=== PATIENT | female | born 1975 | race Caucasian/White ===

== ENCOUNTER 2020-07-17 17:06 | Emergency (ER) | payer OTHER ==
[~2020-07-17] VITALS: Ht 167.6 cm; Wt 76.2 kg
== END 2020-07-17 22:54 | disposition home or self-care (01) ==
LOC: ER 17:06
DX: G44.89 Other headache syndrome (principal); R53.81 Other malaise

== ENCOUNTER 2021-02-18 02:07 | Emergency (ER) | payer OTHER ==
[~2021-02-18] VITALS: Ht 167.6 cm; Wt 81.6 kg
[2021-02-18] MEDS ORDERED: VISTARIL25 MG PO (09:46)
[2021-02-18] MEDS ORDERED: ZOFRAN8 MG SL (09:46)
== END 2021-02-18 09:58 | disposition home or self-care (01) ==
LOC: ER 02:07
DX: R00.2 Palpitations (principal); R11.10 Vomiting, unspecified; F06.4 Anxiety disorder due to known physiological condition

== ENCOUNTER 2021-06-09 23:28 | Emergency (ER) | payer OTHER ==
[~2021-06-09] VITALS: Ht 167.6 cm; Wt 79.4 kg
[~2021-06-09 23:28] MED LIST: VISTARIL25 MG PO; ZOFRAN8 MG SL
[2021-06-10] MEDS ORDERED: MECLIZINE HCL25 MG PO (05:45)
[2021-06-10] MEDS ORDERED: CIPRO500 MG PO (05:46)
== END 2021-06-10 06:00 ==
LOC: ER 23:28
DX: R42 Dizziness and giddiness (principal); M94.0 Chondrocostal junction syndrome [Tietze]; N39.0 Urinary tract infection, site not specified

== ENCOUNTER 2021-10-01 00:29 | Emergency (ER) | payer OTHER ==
[~2021-10-01] VITALS: Ht 167.6 cm; Wt 79.8 kg
[~2021-10-01 00:29] MED LIST changes: +CIPRO500 MG PO; +MECLIZINE HCL25 MG PO
[2021-10-01] MEDS ORDERED: NORFLEX100MG PO (03:38)
[2021-10-01] MEDS ORDERED: MEDROLPACK PO (03:38)
== END 2021-10-01 04:11 | disposition home or self-care (01) ==
LOC: ER 00:29
DX: M25.522 Pain in left elbow (principal)

== ENCOUNTER 2022-06-25 15:52 | Emergency (ER) | payer OTHER ==
[~2022-06-25] VITALS: Ht 167.6 cm; Wt 81.6 kg
[~2022-06-25 15:52] MED LIST changes: +ACETAMINOPHEN650 M2; +MEDROLPACK PO; +NORFLEX100MG PO
[2022-06-26] MEDS ORDERED: ZOFRAN8 MG PO (02:41)
[2022-06-26] MEDS ORDERED: PEPCID40 MG PO (02:41)
[2022-06-26] MEDS ORDERED: LEVSIN/SL0.125 MG SL (02:41)
[2022-06-26] MEDS ORDERED: INTESTINEX680 M1 PO (02:41)
== END 2022-06-26 02:53 ==
LOC: ER 15:52
DX: K52.89 Other specified noninfective gastroenteritis and colitis (principal)

== ENCOUNTER 2022-08-13 12:06 | Emergency (ER) | payer OTHER ==
[~2022-08-13] VITALS: Ht 167.6 cm; Wt 83.9 kg
[~2022-08-13 12:06] MED LIST changes: +INTESTINEX680 M1 PO; +LEVSIN/SL0.125 MG SL; +PEPCID40 MG PO; +ZOFRAN8 MG PO
== END 2022-08-13 15:00 | disposition home or self-care (01) ==
LOC: ER 12:06
DX: K58.9 Irritable bowel syndrome, unspecified (principal); Z88.6 Allergy status to analgesic agent

== ENCOUNTER 2023-04-05 20:51 | Emergency (ER) | payer OTHER ==
[~2023-04-05] VITALS: Ht 167.6 cm; Wt 81.6 kg
[2023-04-05] MEDS ORDERED: ZITHROMAX500 MG PO (22:32)
== END 2023-04-05 22:41 | disposition home or self-care (01) ==
LOC: ER 20:51
DX: B34.9 Viral infection, unspecified (principal); Z88.6 Allergy status to analgesic agent; Z20.822 Contact with and (suspected) exposure to COVID-19

== ENCOUNTER 2023-05-03 06:45 | Emergency (ER) | payer OTHER ==
[~2023-05-03] VITALS: Ht 167.6 cm; Wt 85.3 kg
[~2023-05-03 06:45] MED LIST changes: +ZITHROMAX500 MG PO
== END 2023-05-03 12:17 | disposition home or self-care (01) ==
LOC: ER 06:45
DX: R42 Dizziness and giddiness (principal)

== ENCOUNTER 2023-09-26 11:03 | Emergency (ER) | payer OTHER ==
[~2023-09-26] VITALS: Ht 167.6 cm; Wt 86.2 kg
[2023-09-26] MEDS ORDERED: TYLENOL ARTHRI650 MG PO (14:33)
== END 2023-09-26 14:46 | disposition home or self-care (01) ==
LOC: ER 11:03
DX: S83.92XA Sprain of unspecified site of left knee, initial encounter (principal); M79.652 Pain in left thigh; W18.30XA Fall on same level, unspecified, initial encounter; Y93.9 Activity, unspecified; Y92.9 Unspecified place or not applicable; Y99.9 Unspecified external cause status

== ENCOUNTER 2024-11-04 19:18 | Emergency (ER) | payer OTHER ==
[~2024-11-04] VITALS: Ht 167.6 cm; Wt 87.1 kg
[~2024-11-04 19:18] MED LIST changes: +TYLENOL ARTHRI650 MG PO
[2024-11-04 20:55] LABS: HEMATOCRIT 37.9 % (36.0-45.00); MEAN CELL VOLUME 89.9 fL (80.00-100.00); MEAN CORPUSCULAR HEMOGLOBIN 30.8 pg (27.00-32.0); MEAN CORPUSCULAR HGB CONC 34.2 g/dl (32.0-36.0); PLATELET COUNT 247 K/uL (150-450); RED BLOOD COUNT 4.21 M/uL (4.00-6.00); RED CELL DISTRIBUTION WIDTH 14.4 % (11.5-14.5)
[2024-11-04 21:04] LABS: URINE APPEARANCE Clear; URINE BILIRRUBIN Negative (NEGATIVE); URINE BLOOD Negative; URINE COLOR Dark Yellow; URINE GLUCOSE Negative (NEGATIVE); URINE KETONE Trace (NEGATIVE); URINE LEUKOCYTE Moderate; URINE NITRATE Positive; URINE PROTEIN Negative (NEGATIVE)
[2024-11-04 21:05] LABS: URINE BACTERIA 341.4 uL (0.0-1933); URINE EPITHELIAL CELLS 18.3 uL (0.0-38.8); URINE WBC 82.1 uL (0.0-23.2)
[2024-11-04 21:09] LABS: URINE CAST 0.14 uL (0.0-1.40)
[2024-11-04] MEDS ORDERED: CIPRO500 MG PO (21:19)
[2024-11-04] MEDS ORDERED: DEXAMETHASONE SODIUM PHOSPHATE 4 MG/ML VIAL IM STA (21:25)
[2024-11-04] MEDS ORDERED: ORPHENADRINE CITRATE 30 MG/ML AMPUL IM STA (21:26)
== END 2024-11-04 21:51 | disposition home or self-care (01) ==
LOC: ER 19:20
DX: N39.0 Urinary tract infection, site not specified (principal); Z88.6 Allergy status to analgesic agent
CPT/HCPCS: 36415; 96372; 99282; J1885; J2360

== ENCOUNTER 2025-03-09 21:44 | Emergency (ER) | payer OTHER ==
[~2025-03-09] VITALS: Ht 167.6 cm; Wt 83.9 kg
[2025-03-09] MEDS ORDERED: ACETAMINOPHEN 500 MG GEL..CAP PO ONE ×2 (23:30→23:34)
[2025-03-09] MEDS ORDERED: DEXAMETHASONE SODIUM PHOSPHATE 4 MG/ML VIAL IM ONE (23:30)
[2025-03-09] MEDS ORDERED: DEXAMETHASONE SODIUM PHOSPHATE 4 MG/ML VIAL ONE (23:34)
== END 2025-03-10 00:31 | disposition home or self-care (01) ==
LOC: ER 21:46
DX: M53.3 Sacrococcygeal disorders, not elsewhere classified (principal); Z88.6 Allergy status to analgesic agent